=== PATIENT | female | born 1935 | race African-American/Black ===

== ENCOUNTER 2017-12-31 20:57 | Emergency (ER) | payer MEDICARE, MEDICAID ==
[~2017-12-31 20:57] MED LIST: ASPI-495; BP MEDS; CHOLESTEROL PILL; CLON0.5T
[2018-01-01] MEDS ORDERED: HYDROMORPHONE 1 MG/1 ML DISP.SYRIN IM ONE
[2018-01-01] MEDS ORDERED: ONDANSETRON 4 MG TAB.RAPDIS SL ONE
[2018-01-01] MEDS ORDERED: HYDROMORPHONE INJ 2 MG/ML DISP.SYRIN ONE (00:02)
[2018-01-01] MEDS ORDERED: ONDANSETRON 4 MG TAB.RAPDIS ONE (00:03)
== END 2018-01-01 00:10 | disposition home or self-care (01) ==
DX: M54.9 Dorsalgia, unspecified (principal); I10 Essential (primary) hypertension; Z79.82 Long term (current) use of aspirin

== ENCOUNTER 2023-02-28 06:20 | Emergency (ER) | payer MEDICARE, OTHER ==
[~2023-02-28] VITALS: Ht 160 cm; Wt 45.8 kg
[~2023-02-28 06:20] MED LIST changes: +AMYL1CAP56 PO; -ASPI-495; -BP MEDS; -CHOLESTEROL PILL; -CLON0.5T; +CLON0.5T PO; +LOSA50TA39 PO; +METO25TA20 PO
--- NOTE | 2023-02-28 06:36 | NUR ---
Hugo AOx4, able to espress her concerns. Per pts request, son at bedside. Patient states she felll and due to that she has been experiencing right temporal pain. Pt is stable no signs of distress or discomfort, rates pain 9/10. Discussed plan of care, pt verbalized agreement.
--- NOTE | 2023-02-28 06:57 | NUR ---
DR. VALDERRAMA AT BEDSIDE
--- NOTE | 2023-02-28 07:10 | NUR ---
PT TAKEN TO CT
--- NOTE | 2023-02-28 07:24 | NUR ---
pt returned to ct via [facility]
--- NOTE | 2023-02-28 08:17 | NUR ---
Patient discharged to home in stable condition. Written and verbal after care instructions given. Patient verbalizes understanding of instruction.
[2023-02-28 08:18] VITALS: BP 138/91; TEMP 98.1
== END 2023-02-28 08:20 | disposition home or self-care (01) ==
LOC: ER 06:22
DX: S00.03XA Contusion of scalp, initial encounter (principal); S09.90XA Unspecified injury of head, initial encounter; I10 Essential (primary) hypertension; F41.9 Anxiety disorder, unspecified; Z79.899 Other long term (current) drug therapy; W06.XXXA Fall from bed, initial encounter; Y93.89 Activity, other specified; Y92.89 Other specified places as the place of occurrence of the external cause; Y99.8 Other external cause status
CPT/HCPCS: 70450-TC; 72125-TC